=== PATIENT | female | born 1955 | race Caucasian/White ===

== ENCOUNTER → 2019-06-07 | Outpatient (CLI) | payer MEDICARE, BC | LOC: M LABSMTC 12:32 | PROVIDERS: ATTEND Family Medicine | DX: Z11.59 Encounter for screening for other viral diseases (principal); Z20.828 Contact with and (suspected) exposure to other viral communicable diseases ==

== ENCOUNTER → 2020-07-23 | Outpatient (CLI) | payer MEDICARE, BC ==
--- NOTE | 2020-07-23 13:53 | REPMRS ---
Patient History Patient is postmenopausal. No known family history of cancer. Taking estrogen. Patient states no breast complaints today. Patient has signed MRS History Sheet. Digital Woman Screen Mammo: July 23, 2020 - Exam #: [id number] Bilateral CC and MLO view(s) were taken. Technologist: Aileen Harrell, Manager Radiation Prior study comparison: January 24, 2019, bilateral screening 3D/tomosynthesis, performed at [facility]. December 22, 2017, bilateral screening 3D/tomosynthesis, performed at [facility]. December 16, 2016, bilateral screening 3D/tomosynthesis, performed at [facility]. FINDINGS: There are scattered fibroglandular densities. The Volpara volumetric breast density category is: B. There is a moderate amount of residual fibroglandular tissue which is fairly symmetric. There is no interval development of dominant mass, architectural distortion, or grouped microcalcification typical of malignancy. There has been no change in the appearance of the mammogram from the prior studies. 3-D tomosynthesis shows no additional findings. Assessment: BI-RADS/ACR category 1 mammogram. Negative Mammogram. Recommendation Routine screening mammogram of both breasts in 1 year (for women over age 40). This patient's [facility] Lifetime Breast Cancer RIsk is estimated at 4.4 %. This mammogram was interpreted with the aid of an FDA-approved computer-aided dectection system. Electronically Signed By: Adonis Tyson MD 07/23/20 0068
== END ==
LOC: M WHC 11:54
PROVIDERS: ATTEND Obstetrics & Gynecology
DX: Z12.31 Encounter for screening mammogram for malignant neoplasm of breast (principal)

== ENCOUNTER → 2022-07-28 | Outpatient (CLI) | payer MEDICARE, BC | LOC: M WHC 12:53 | PROVIDERS: ATTEND Internal Medicine | DX: Z12.31 Encounter for screening mammogram for malignant neoplasm of breast (principal) ==

== ENCOUNTER 2022-10-21 12:14 | Day surgery (SDC) | payer MEDICARE, BC ==
[~2022-10-21] VITALS: Ht 175.3 cm; Wt 92.1 kg
[~2022-10-21 12:14] MED LIST: CELE1CAP9 PO; CYCL-707 PO; NS 1,000 ML IV ONE; OMEG10002 PO; PROP40TA62 PO; VITA200020 PO
[2022-10-21] MEDS ORDERED: fentaNYL 100 MCG/2 ML INJECTION As Ordered ONE (14:07)
[2022-10-21 14:39] VITALS: TEMP 98.8
[2022-10-21] MEDS ORDERED: LIDOCAINE 2% 100MG/5ML SDV (FOR ANES.) As Ordered ONE (14:43)
[2022-10-21] MEDS ORDERED: propofoL 200 MG/20 ML VIAL As Ordered ONE (14:43)
[2022-10-21 14:57] VITALS: BP 108/66; O2SAT 98
== END 2022-10-21 15:12 | disposition home or self-care (01) ==
LOC: M OPP 12:14
PROVIDERS: ATTEND Internal Medicine Gastroenterology
DX: Z12.11 Encounter for screening for malignant neoplasm of colon (principal); K64.8 Other hemorrhoids; R12 Heartburn; Z87.891 Personal history of nicotine dependence; Z79.899 Other long term (current) drug therapy; Z79.891 Long term (current) use of opiate analgesic; Z88.1 Allergy status to other antibiotic agents
CPT/HCPCS: 43235; G0121; J3010

== ENCOUNTER → 2022-11-24 | Outpatient (REF) | payer MEDICARE, BC ==
[~2022-11-24] MED LIST changes: +CELE0.09 PO; -CELE1CAP9 PO; -NS 1,000 ML IV ONE
[2022-11-25 11:21] LABS: APPEARANCE, URINE CLEAR (CLEAR); BACTERIA, URINE AUTO NEGATIVE (NEGATIVE); BILIRUBIN, URINE AUTO NEGATIVE (NEGATIVE); BLOOD, URINE BLOOD NEGATIVE (NEGATIVE); COLOR, URINE STRAW (YELLOW); GLUCOSE, URINE (UA) AUTO NEGATIVE (NEGATIVE); KETONE, URINE AUTO NEGATIVE (NEGATIVE); LEUKOCYTE ESTERASE, URINE AUTO NEGATIVE (NEGATIVE); MUCUS, URINE SMALL (NEGATIVE); NITRITE, URINE AUTO NEGATIVE (NEGATIVE); PROTEIN, URINE AUTO NEGATIVE (NEGATIVE); RBC, URINE AUTO 0 /HPF (0-3); SPECIFIC GRAVITY URINE AUTO 1.004 (1.002-1.035); SQUAMOUS EPITHELIAL CELL UR AU 0 /HPF (0-6); UROBILINOGEN, URINE AUTO 0.2 mg/dL (0.0-2.0); WBC, URINE AUTO 0 /HPF (0-3)
== END ==
LOC: M SFHCWAGY 09:58
PROVIDERS: ATTEND Nurse Practitioner Family
DX: R30.0 Dysuria (principal)

== ENCOUNTER → 2023-08-05 | Outpatient (CLI) | payer MEDICARE, BC | LOC: M WHC 09:52 | PROVIDERS: ATTEND Nurse Practitioner Family | DX: Z12.31 Encounter for screening mammogram for malignant neoplasm of breast (principal); R92.333 Mammographic heterogeneous density, bilateral breasts; Z12.4 Encounter for screening for malignant neoplasm of cervix; R87.615 Unsatisfactory cytologic smear of cervix; R87.618 Other abnormal cytological findings on specimens from cervix uteri | CPT/HCPCS: 87624; G0123 ==

== ENCOUNTER → 2023-08-05 | Outpatient (REF) | payer MEDICARE, BC | LOC: M SFHCWAGY 15:03 | PROVIDERS: ATTEND Nurse Practitioner Family | DX: Z12.4 Encounter for screening for malignant neoplasm of cervix (principal); R87.615 Unsatisfactory cytologic smear of cervix; R87.618 Other abnormal cytological findings on specimens from cervix uteri | CPT/HCPCS: 87624; G0123 ==

== ENCOUNTER → 2023-11-19 | Outpatient (REF) | payer MEDICARE, BC | LOC: M SFHCWAGY 17:15 | PROVIDERS: ATTEND Nurse Practitioner Family | DX: N39.0 Urinary tract infection, site not specified (principal) ==

== ENCOUNTER 2024-11-15 08:43 | Emergency (ER) | payer MEDICARE, BC ==
[~2024-11-15] VITALS: Ht 175.3 cm; Wt 98.7 kg
[2024-11-15 09:48] LABS: BASO # 0.0 10^3/uL (0.0-0.2); BASO % 0.7 % (0.0-1.0); EOS # 0.1 10^3/uL (0.0-0.5); EOS % 1.8 % (0.0-3.0); LYMPH # 2.0 10^3/uL (1.5-5.0); LYMPH % 32.6 % (24.0-44.0); MONO # 0.6 10^3/uL (0.0-0.8); MONO % 9.7 % (2.0-8.0); NEUTROPHILS # 3.3 10^3/uL (1.5-8.5); NEUTROPHILS % 54.9 % (36.0-66.0); PLATELET COUNT, AUTOMATED 217 10^3/uL (150-450)
[2024-11-15] MEDS ORDERED: ISOVUE-370 76% 100 ML VIAL As Ordered ONE (10:03)
[2024-11-15 10:10] LABS: KETONE, URINE AUTO RFX NEGATIVE (NEGATIVE); LEUKOCYTE ESTERASE UR AUTO RFX NEGATIVE (NEGATIVE); NITRITE, URINE AUTO RFX NEGATIVE (NEGATIVE); RBC, URINE AUTO RFX 1 /HPF (0-3); SQUAM EPITHELIAL CELL UR AURFX 2 /HPF (0-6); WBC, URINE AUTO RFX 0 /HPF (0-3)
[2024-11-15 10:17] LABS: ALT/SGPT 18.0 U/L (7.0-40); AST/SGOT 15.0 U/L (<34); CALCIUM LEVEL 8.9 MG/DL (8.3-10.6); CARBON DIOXIDE LEVEL 27.0 MMOL/L (20-31); CHLORIDE LEVEL 102.0 MMOL/L (98-107); CREATININE FOR GFR 0.84 MG/DL (0.55-1.30); GLOMERULAR FILTRATION RATE 74.7 (>39); POTASSIUM SERUM 4.4 MMOL/L (3.5-5.1); SODIUM LEVEL 136.0 MMOL/L (136-145)
[2024-11-15] MEDS: NS 500 ML IV ONE (10:21)
[2024-11-15] MEDS: ACETAMINOPHEN *IV* 1,000 MG in IV 1 EA IV ONE (10:21)
[2024-11-15 12:26] VITALS: TEMP 96.7
[2024-11-15 12:56] VITALS: O2SAT 97
[2024-11-15] MEDS ORDERED: COLA100C5 PO (12:56)
[2024-11-15 13:01] VITALS: BP 141/64
== END 2024-11-15 13:03 | disposition home or self-care (01) ==
LOC: M ED 08:43
DX: R10.9 Unspecified abdominal pain (principal); K59.00 Constipation, unspecified; R00.1 Bradycardia, unspecified; I44.0 Atrioventricular block, first degree; I70.8 Atherosclerosis of other arteries; J98.11 Atelectasis; K42.9 Umbilical hernia without obstruction or gangrene; J45.909 Unspecified asthma, uncomplicated; F10.10 Alcohol abuse, uncomplicated; F41.9 Anxiety disorder, unspecified; Z88.8 Allergy status to other drugs, medicaments and biological substances; Z87.442 Personal history of urinary calculi; Z79.899 Other long term (current) drug therapy
CPT/HCPCS: 71046; 74177; 80047; 80048; 80076; 81001; 83605; 83690; 85025; 93005; 93041; 96361; 96374; 99284; J0131; Q9967

== ENCOUNTER 2024-11-22 04:16 | Emergency (ER) | payer MEDICARE, BC ==
[~2024-11-22] VITALS: Ht 175.3 cm; Wt 96.3 kg
[~2024-11-22 04:16] MED LIST changes: +COLA100C5 PO
[2024-11-22 05:36] LABS: BASO # 0.1 10^3/uL (0.0-0.2); BASO % 0.9 % (0.0-1.0); EOS # 0.1 10^3/uL (0.0-0.5); EOS % 2.2 % (0.0-3.0); LYMPH # 2.1 10^3/uL (1.5-5.0); LYMPH % 37.3 % (24.0-44.0); MONO # 0.6 10^3/uL (0.0-0.8); MONO % 10.0 % (2.0-8.0); NEUTROPHILS # 2.7 10^3/uL (1.5-8.5); NEUTROPHILS % 49.4 % (36.0-66.0); PLATELET COUNT, AUTOMATED 236 10^3/uL (150-450)
[2024-11-22 05:38] LABS: KETONE, URINE AUTO RFX TRACE mg/dL (NEGATIVE); LEUKOCYTE ESTERASE UR AUTO RFX NEGATIVE (NEGATIVE); MUCUS, URINE RFX SMALL (NEGATIVE); NITRITE, URINE AUTO RFX NEGATIVE (NEGATIVE); RBC, URINE AUTO RFX 1 /HPF (0-3); SQUAM EPITHELIAL CELL UR AURFX 9 /HPF (0-6); WBC, URINE AUTO RFX 1 /HPF (0-3)
[2024-11-22 06:05] LABS: ALT/SGPT 23.0 U/L (7.0-40); AST/SGOT 17.0 U/L (<34); CALCIUM LEVEL 9.2 MG/DL (8.3-10.6); CARBON DIOXIDE LEVEL 28.0 MMOL/L (20-31); CHLORIDE LEVEL 99.0 MMOL/L (98-107); CREATININE FOR GFR 0.92 MG/DL (0.55-1.30); GLOMERULAR FILTRATION RATE 67.0 (>39); POTASSIUM SERUM 4.4 MMOL/L (3.5-5.1); SODIUM LEVEL 131.0 MMOL/L (136-145)
[2024-11-22] MEDS: KETOROLAC 30 MG/ML 1 ML VIAL IV ONE (06:40)
[2024-11-22] MEDS: ONDANSETRON 4MG 2ML VIAL IV ONE (08:03)
[2024-11-22] MEDS: MORPHINE 4 MG/ML 1 ML VIAL IV ONE (08:04)
[2024-11-22] MEDS ORDERED: PROT20TA11 PO (09:34)
[2024-11-22] MEDS ORDERED: DICY-61 PO (09:34)
[2024-11-22 09:45] VITALS: BP 122/65; TEMP 97.6; O2SAT 95
== END 2024-11-22 09:48 | disposition home or self-care (01) ==
LOC: M ED 04:16
DX: R10.32 Left lower quadrant pain (principal); M51.369 Other intervertebral disc degeneration, lumbar region without mention of lumbar back pain or lower extremity pain; Z90.49 Acquired absence of other specified parts of digestive tract; Z88.8 Allergy status to other drugs, medicaments and biological substances; Z79.899 Other long term (current) drug therapy
CPT/HCPCS: 74176; 80048; 80076; 81001; 83690; 85025; 93041; 96374; 96375; 99285; J1885; J2405

== ENCOUNTER → 2024-12-06 | Outpatient (CLI) | payer MEDICARE, BC ==
[~2024-12-06] MED LIST changes: +DICY-61 PO; +PANT20TA6 PO; +PROT20TA11 PO; +VITA100093 PO
== END ==
LOC: M WHC 11:36
PROVIDERS: ATTEND Obstetrics & Gynecology
DX: Z00.00 Encounter for general adult medical examination without abnormal findings (principal)

== ENCOUNTER → 2024-12-06 | Outpatient (CLI) | payer MEDICARE, BC | LOC: M WHC 10:18 | PROVIDERS: ATTEND Obstetrics & Gynecology | DX: Z12.31 Encounter for screening mammogram for malignant neoplasm of breast (principal); R92.333 Mammographic heterogeneous density, bilateral breasts ==

== ENCOUNTER 2024-12-13 10:42 | Day surgery (SDC) | payer MEDICARE, BC ==
[~2024-12-13] VITALS: Ht 175.3 cm; Wt 94.3 kg
[2024-12-13] MEDS ORDERED: LIDOCAINE 2% 100 MG/5 ML SDV (FOR ANES.) As Ordered ONE (11:47)
[2024-12-13 12:13] VITALS: TEMP 98
[2024-12-13 12:44] VITALS: BP 115/61; O2SAT 96
== END 2024-12-13 12:51 | disposition home or self-care (01) ==
LOC: M OPP 10:42
PROVIDERS: ATTEND Internal Medicine Gastroenterology
DX: K64.8 Other hemorrhoids (principal); R10.12 Left upper quadrant pain; R10.32 Left lower quadrant pain; R10.13 Epigastric pain; Z88.8 Allergy status to other drugs, medicaments and biological substances; Z79.899 Other long term (current) drug therapy; J45.909 Unspecified asthma, uncomplicated
CPT/HCPCS: 43235; 45378; J3010